=== PATIENT | female | born 1950 | race Caucasian/White ===

== ENCOUNTER 2017-07-29 08:18 | Outpatient (CLI) | payer MEDICARE, OTHER ==
--- NOTE | 2017-08-02 17:45 | Mammography Report ---
DIGITAL SCREENING MAMMOGRAM: 07/29/2017 CLINICAL INDICATION: A 67-year-old with history of benign excisional biopsy for screening. COMPARISON: 05/2014, 05/2012, 04/2010, 12/2007. TECHNIQUE: Routine CC and MLO projections were obtained of the breasts. FINDINGS: The breasts again demonstrate scattered fibroglandular densities bilaterally. Punctate, typically benign calcifications are present. No suspicious masses, clustered microcalcifications, or regions of architectural distortion are identified. IMPRESSION: BENIGN FINDINGS. RECOMMENDATION: Routine annual screening unless otherwise clinically indicated. BI-RADS category 2 benign findings. STANDARD QUALIFYING STATEMENTS 1. This examination was reviewed with the aid of Computed-Aided Detection (CAD). 2. A negative or benign imaging report should not delay biopsy if clinically suspicious findings are present. Consider surgical consultation if warranted. More than 5% of cancers are not identified by imaging. 3. Dense breasts may obscure an underlying neoplasm. TD: 08/02/2017 15:31
== END 2017-07-29 08:19 | disposition home or self-care (01) ==
LOC: DI.S 08:18
PROVIDERS: ATTEND Physician Assistant
DX: Z12.31 Encounter for screening mammogram for malignant neoplasm of breast (principal)
CPT/HCPCS: 77067

== ENCOUNTER 2017-12-05 13:00 | Outpatient (CLI) | payer MEDICARE, OTHER | END 2017-12-05 13:01 | disposition home or self-care (01) | LOC: SC 13:00 | PROVIDERS: ATTEND Internal Medicine Pulmonary Disease | DX: G47.33 Obstructive sleep apnea (adult) (pediatric) (principal) | CPT/HCPCS: 99203; G0463; 99212 ==

== ENCOUNTER 2018-01-14 19:38 | Outpatient (CLI) | payer MEDICARE, OTHER | END 2018-01-14 19:39 | disposition home or self-care (01) | LOC: SC 19:38 | PROVIDERS: ATTEND Internal Medicine Pulmonary Disease | DX: G47.33 Obstructive sleep apnea (adult) (pediatric) (principal); G47.61 Periodic limb movement disorder | CPT/HCPCS: 95810 ==

== ENCOUNTER 2018-01-31 10:19 | Outpatient (CLI) | payer MEDICARE, OTHER | END 2018-01-31 10:20 | disposition home or self-care (01) | LOC: SC 10:19 | PROVIDERS: ATTEND Internal Medicine Pulmonary Disease | DX: G47.33 Obstructive sleep apnea (adult) (pediatric) (principal) | CPT/HCPCS: 99213; G0463; 99212 ==

== ENCOUNTER 2018-07-18 10:09 | Outpatient (CLI) | payer MEDICARE, OTHER | END 2018-07-18 10:10 | disposition home or self-care (01) | LOC: SC 10:09 | PROVIDERS: ATTEND Internal Medicine Pulmonary Disease | DX: G47.33 Obstructive sleep apnea (adult) (pediatric) (principal) | CPT/HCPCS: 99213; G0463; 99212 ==

== ENCOUNTER 2019-09-03 10:23 | Outpatient (CLI) | payer MEDICARE, OTHER ==
--- NOTE | 2019-09-03 11:00 | SLEEP CARE CONSULTATION ---
Information from patient questionnaire entered by Jasmina Ren. I have reviewed and concur with the information entered by Jasmina Ren. This document represents the service I personally performed and the decisions made by me, Ethan Hernandez MD, [facility]. History of Present Illness Service Date and Time: 09/03/2019 1023 Previous diagnosis: Mild, Obstructive Sleep Apnea-Hypopnea Syndrome AHI: 5.7 (in 2018) Reason for follow up: annual (last seen 2019) Equipment type: CPAP Equipment obtained from: [employer] Prior sleep studies: Yes Year and Where: 2018 - [facility] Type of Sleep Study: Polysomnography HPI additional information: The patient is doing very well on CPAP therapy at low pressure. She has perfect compliance using a ResMed N30i. She has switched supplier to [employer]. No snore on CPAP. She continues to benefit from the treatment. CPAP Compliance Data - Data Reviewed with Patient Average duration of nightly device use: 7.5 Compliance rate %: 84.4 (180 days) Current pressure setting (cmH2O): 4-8 Humidity settin Heated hose settin Average residual AHI: 3.8 Average large leak: 29 sec Subjective Initial [place] Sleepiness Scale score: 13 (in 2018) Current [place] Sleepiness Scale score: 3 Allergies and Home Medications Drug allergies reviewed: Yes Home medication list reviewed: Yes Review of Systems Review of systems same as previous: Yes Physical Exam Vital signs obtained and entered by: deferred due to COVID-19. Height: 5 ft 7 in Impression and Plan IMPRESSION: 1. Obstructive Sleep Apnea-Hypopnea Syndrome, mild, with the patient continuing to do well on nasal CPAP therapy. She has excellent compliance and significant clinical improvement. The current pressure appears effective and comfortable. Overall, she is very satisfied with treatment and plans to continue with it long-term. No adjustment is necessary today. PLAN: 1. Continue with CPAP set at 4 - 8 cm H2O. 2. Try to lose weight 3. Return in one year for follow up or earlier if there is any problem with the treatment. Visit Type: In Office Time Spent with Patient (minutes): 15 Provider Statement: I spent 100% of the Face to Face Visit with the patient with greater than 50% spent counseling the patient and coordination of care.
== END 2019-09-03 10:24 | disposition home or self-care (01) ==
LOC: SC 10:23
PROVIDERS: ATTEND Internal Medicine Pulmonary Disease
DX: G47.33 Obstructive sleep apnea (adult) (pediatric) (principal)
CPT/HCPCS: 99213; G0463; 99212

== ENCOUNTER 2019-09-18 09:29 | Outpatient (CLI) | payer MEDICARE, OTHER ==
[2019-09-18 15:01] LABS: HCG UR QUAL NEGATIVE
== END 2019-09-18 09:30 | disposition home or self-care (01) ==
LOC: LAB.S 09:29
PROVIDERS: ATTEND Ophthalmology
DX: H25.812 Combined forms of age-related cataract, left eye (principal); Z11.59 Encounter for screening for other viral diseases
CPT/HCPCS: 81025; U0004; 81599

== ENCOUNTER 2019-09-20 07:37 | Day surgery (SDC) | payer MEDICARE, OTHER ==
[~2019-09-20 07:37] MED LIST: BRIMONIDINE 0.2% OPHTH DROPS 5 ML ONE; BSS/LIDOCAINE/EPINEPHRINE 1 ML SYRINGE ONE; CYCLOPENTOLATE 1% OPHTH DROPS 2 ML ONE; EPINEPHrine 1 MG/ML AMP ONE; KETOROLAC 0.45% OPHTH DROPS ONE; PHENYLEPHRINE 2.5% OPHTH 2 ML DROPS ONE; PROPARACAINE 0.5% OPHTH DROPS 15 ML ONE; TRIAMCIN/MOXIFLOX OPHTHALMIC 0.6 ML VIAL IO ONE; VANCOMYCIN OPHTHALMI 8MG/0.8ML 8 MG/0.8 ML SYRINGE IO ONE; timoloL maleate 0.5% OPHTH DROPS (10ML) ONE
[2019-09-20] MEDS ORDERED: LACTATED RINGERS 500 ML IV ONE (07:44)
--- NOTE | 2019-09-20 08:35 | ANESTHESIA ---
Pre-Anesthesia VS, & Labs - Diagnosis Right eye cataract - Procedure Right eye ECCE PHACO with IOL Vital Signs: Temp Pulse Resp BP Pulse Ox 36.7 C 67 16 142/83 H 97 09/20/19 07:55 09/20/19 07:55 09/20/19 07:55 09/20/19 07:55 09/20/19 07:55 Height 5 ft 7 in Weight (kg) 89 kg - NPO >8 hours - Is Patient ?: No - Lab Results Lab results reviewed: Yes Home Medications and Allergies Home Medications: Ambulatory Orders Fluoxetine HCl [Prozac] 40 mg PO DAILY 09/20/19 hydroCHLOROthiazide [Hydrochlorothiazide] 25 mg PO DAILY 09/20/19 Fluoxetine HCl [Prozac] 40 mg PO DAILY 09/20/19 hydroCHLOROthiazide [Hydrochlorothiazide] 25 mg PO DAILY 09/20/19 Allergies/Adverse Reactions: Allergies Allergy/AdvReac Type Severity Reaction Status Date / Time No Known Drug Allergies Allergy Verified 06/25/13 14:03 Anes History & Medical History - Anesthetic History Anesthesia Complications: reports: No previous complications Family history of Anesthesia Complications: Denies Family history of Malignant Hyperthermia: Denies - Medical History Cardiovascular: reports: None, Hypertension Pulmonary: reports: Sleep apnea, CPAP use, Other Gastrointestinal: reports: None Urinary: reports: Frequency Musculoskeletal: reports: Osteoarthritis Skin: reports: None - Surgical History General: Colonoscopy Gynecologic: Hysterectomy Orthopedic: ACL reconstruction, Arthroscopic surgery Exam General: Alert, Oriented x3, Cooperative Dental: WNL Mouth Openin Fingerbreadth Neck Mobility: Reduced Mallampati classification: II Thyromental Distance: 4-6 cm Respiratory: Lungs clear Cardiovascular: Regular rate Plan Anesthesia Type: MAC Consent for Procedure(s) Verified and Reviewed: Yes Code Status: Attempt Resuscitation ASA classification: 3-Severe systemic disease Is this case an emergency?: No
[2019-09-20] MEDS ORDERED: MIDAZOLAM 2 MG/2 ML VIAL IVP ONE (08:42)
[2019-09-20] MEDS ORDERED: BRIMONIDINE 0.2% OPHTH DROPS 5 ML OPTH ONE (08:49)
[2019-09-20] MEDS ORDERED: EPINEPHrine 1 MG/ML AMP IR ONE (08:50)
[2019-09-20] MEDS ORDERED: CHONDR SULF/HYALURONATE SYRINGE IO ONE (08:50)
[2019-09-20] MEDS ORDERED: PROPARACAINE 0.5% OPHTH DROPS 15 ML EACHEYE ONE (08:51)
[2019-09-20] MEDS ORDERED: BSS/LIDOCAINE/EPINEPHRINE 1 ML SYRINGE IO ONE (08:51)
[2019-09-20] MEDS ORDERED: VANCOMYCIN OPHTHALMI 8MG/0.8ML 8 MG/0.8 ML SYRINGE IO ONE (08:52)
[2019-09-20 09:22] VITALS: BP 130/66
--- NOTE | 2019-09-20 09:49 | OPERATIVE REPORT ---
DATE OF SERVICE: 09/20/2019 Physician: Kiel Kate MD PREOPERATIVE DIAGNOSIS: Visually significant cataract, left eye. This was her first cataract surger y. POSTOPERATIVE DIAGNOSIS: Visually significant cataract, left eye. This was her first cataract surge ry. PROCEDURE: Phacoemulsification with posterior chamber intraocular lens implant, left eye. SURGEON: Kiel Kate MD ANESTHESIA: Monitored anesthesia care. COMPLICATIONS: None. OPERATIVE INDICATIONS: This is a 69-year-old woman with progressive vision loss in the left eye due to 2+ nuclear sclerotic and 2+ cortical cataract. Best corrected visual acuity was 20/25, with glare to 20/40 in the left eye. Indications for surgery were overall decrease in vision, difficulty readi ng, difficulty seeing street signs, difficulty driving in low light or at night, difficulty driving a t night because of headlights from other vehicles, and difficulty with glare or bright lights in any situation. She was consented at length concerning risks and benefits of cataract surgery, after whic h she expressed a desire to proceed with surgery. OPERATIVE PROCEDURE: Patient was taken to OR #3 and placed under monitored anesthesia care. A surgi eileen timeout was conducted confirming correct patient, correct procedure, and correct surgical site. She was given topical anesthesia then prepped and draped in the usual sterile fashion. The eye was e ntered at the 6 and 3 o'clock positions. Intracameral Shugarcaine was injected into the anterior carolina mber, followed by Viscoat. A continuous-tear curvilinear capsulorrhexis was performed. The nucleus was hydrodissected and phacoemulsified. The cortex was evacuated using automated infusion and aspira tion. Provisc was injected in the capsular bag, and a 22.5 diopter intraocular lens was inserted int o the bag. Infusion and aspiration was used to evacuate the viscoelastic materials. The eye was inf lated to physiologic pressure using balanced salt solution and found to be watertight. Approximately 0.25 mL of a mixture of triamcinolone and moxifloxacin was injected trans sclerally into the vitreou s in the inferotemporal quadrant. An additional 0.55 mL of a mixture of triamcinolone, moxifloxacin and vancomycin was injected subconjunctivally in the superior quadrant for infection and inflammation prophylaxis. Wound integrity was checked with Weck-Drea sponges. Patient was taken from the Operati ng Room in good condition and given postoperative instructions. TD: 09/20/2019 09:13
== END 2019-09-20 07:38 | disposition home or self-care (01) ==
LOC: SDS 07:37
PROVIDERS: ATTEND Ophthalmology
DX: H25.812 Combined forms of age-related cataract, left eye (principal); G47.33 Obstructive sleep apnea (adult) (pediatric); I10 Essential (primary) hypertension; Z87.891 Personal history of nicotine dependence
CPT/HCPCS: 66984; A9270; J3490; V2632

== ENCOUNTER 2019-10-08 17:35 | Outpatient (CLI) | payer MEDICARE, OTHER | END 2019-10-08 17:36 | disposition home or self-care (01) | LOC: COV 17:35 | PROVIDERS: ATTEND Family Medicine | DX: Z11.59 Encounter for screening for other viral diseases (principal) ==

== ENCOUNTER 2020-08-18 11:01 | Outpatient (CLI) | payer MEDICARE, OTHER ==
--- NOTE | 2020-08-18 12:08 | SLEEP CARE CONSULTATION ---
Information from patient questionnaire entered by Jasmina Ren. I have reviewed and concur with the information entered by Jasmina Ren. This document represents the service I personally performed and the decisions made by me, Ethan Hernandez MD, [facility] [place]. History of Present Illness Service Date and Time: 08/18/2020 1101 Previous diagnosis: Mild, Obstructive Sleep Apnea-Hypopnea Syndrome AHI: 5.7 (in 2018) Reason for follow up: annual (last seen 08/2019) Equipment type: CPAP Equipment obtained from: [employer] Mask style: Nasal Mask brand: Resmed (N30i) Prior sleep studies: Yes Year and Where: 2018 [facility] HPI additional information: HPI: Ms. Givens returned today for follow up of nasal CPAP therapy. She was diagnosed to have mild obstructive sleep apnea-hypopnea syndrome. The patient went to [facility] for the equipment and was fitted with a Respironics DreamWear nasal cushion mask. She now uses a ResMed N30i mask. Her durable medical supplier is [employer]. She continues to use the device nightly and all through the night. The compliance report shows usage in 180 nights out of the past 180 nights, averaging 8.7 hours a night. She complained of no particular problem with the device such as soreness on the face, dry nose, epistaxis, nasal congestion or headache. She thinks that the pressure of 4 - 8 cmH2O is comfortable. On the CPAP therapy she notices improvement in her sleep quality, and that she wakes up feeling fresher in the morning and more awake/alert during the day. The [place] Sleepiness Scale score 8 (unchanged). The average residual AHI is 2.9; and average time in large leak per day is 5 seconds. The 90th percentile pressure is 7.3 cmH2O. CPAP Compliance Data - Data Reviewed with Patient Average duration of nightly device use: 8 hr 43 min Compliance rate %: 100 (180 days) Current pressure setting (cmH2O): 4-8 Humidity settin Heated hose settin Average residual AHI: 2.9 Average large leak: 5 sec Subjective Initial [place] Sleepiness Scale score: 13 (in 2018) Current [place] Sleepiness Scale score: 8 Allergies and Home Medications Drug allergies reviewed: Yes Home medication list reviewed: Yes Review of Systems Review of systems same as previous: Yes Physical Exam Height: 5 ft 7 in Weight: 170 lb Weight change since last visit: -14 lbs Body Mass Index: 26.6 BMI Classification: Overweight Impression and Plan IMPRESSION: 1. Obstructive Sleep Apnea-Hypopnea Syndrome, mild, with the patient doing well on nasal CPAP therapy. She has excellent compliance and significant clinical improvement. The current pressure appears effective and comfortable. Overall, she is very satisfied with treatment and plans to continue with it long-term. No adjustment is necessary today. PLAN: 1. Continue with nasal CPAP therapy at 4 - 8 cmH2O. 2. Try to lose more weight 3. Try ResMed P30i nasal pillows 4. Return in one year for follow up or earlier if there is any problem with the treatment. Visit Type: In Office Time Spent with Patient (minutes): 15 Provider Statement: I spent 100% of the Face to Face Visit with the patient with greater than 50% spent counseling the patient and coordination of care.
== END 2020-08-18 11:02 | disposition home or self-care (01) ==
LOC: SC 11:01
PROVIDERS: ATTEND Internal Medicine Pulmonary Disease
DX: G47.33 Obstructive sleep apnea (adult) (pediatric) (principal); E66.3 Overweight; Z68.26 Body mass index [BMI] 26.0-26.9, adult
CPT/HCPCS: 99212; G0463

== ENCOUNTER 2021-02-15 12:16 | Outpatient (CLI) | payer MEDICARE, OTHER ==
--- NOTE | 2021-02-16 12:57 | Mammography Report ---
BILATERAL DIGITAL SCREENING MAMMOGRAM 3D/2D: 02/15/2021 CLINICAL: Routine screening. Comparison is made to exams dated: 07/29/2017 mammogram, 05/31/2014 mammogram, 05/30/2012 mammogram, an d 05/01/2010 mammogram - [facility]. The tissue of both breasts is predominantly fa tty. No significant masses, calcifications, or other findings are seen in either breast. There has been no significant interval change. IMPRESSION: NEGATIVE There is no mammographic evidence of malignancy. A 1 year screening mammogram is recommended. This exam was interpreted at Station ID: [id number]. NOTE: For mammograms, a report in lay terms will be sent to the patient. Approximately 15% of breast malignancies will not be visualized mammographically. In the management of a palpable breast mass, a negative mammogram must not discourage biopsy of a clinically suspicious lesion. Electronically Signed By: Toño Jason M.D., jr/benedict:02/16/2021 09:08:36 ACR BI-RADS Category 1: Negative 3341F PARENCHYMAL PATTERN: (F) - The breast(s) demonstrate(s) diffuse fatty replacement. BI-RADS CATEGORY: (1) - 1 RECOMMENDATION: (ANNUAL) - Recommend routine annual screening mammography. [id number] 1 year screening LATERALITY: (B)
== END 2021-02-15 12:17 | disposition home or self-care (01) ==
LOC: DI.S 12:16
PROVIDERS: ATTEND Nurse Practitioner Family
DX: Z12.31 Encounter for screening mammogram for malignant neoplasm of breast (principal)

== ENCOUNTER 2021-07-27 10:50 | Outpatient (CLI) | payer MEDICARE, OTHER ==
[2021-07-27 11:35] VITALS: BP 123/70
--- NOTE | 2021-07-27 11:35 | SLEEP CARE CONSULTATION ---
Information from patient questionnaire entered by Ti Toney MA. I have reviewed and concur with the information entered by Ti Toney MA. This document represents the service I personally performed and the decisions made by me, Ethan Hernandez MD, [facility]. History of Present Illness Service Date and Time: 07/27/2021 1050 Previous diagnosis: Mild, Obstructive Sleep Apnea-Hypopnea Syndrome AHI: 5.7 (in 2018) Reason for follow up: other (11 MONTH F/U , EMILY, ) Equipment type: CPAP Equipment obtained from: [employer] Mask style: Nasal Prior sleep studies: Yes Year and Where: 2017 - [facility] HPI additional information: Ms. Givens returned today for her annual follow up of nasal CPAP therapy. She was diagnosed to have mild obstructive sleep apnea-hypopnea syndrome. The patient went to [facility] for the equipment but is getting supplies from [facility]. She wears a ResMed N30i mask (she did not like the P30 nasal pillows). She continues to use the device nightly and all through the night. The compliance report shows usage in 334 nights out of the past 365 nights, averaging 8.2 hours a night. The > 4 hour compliance rate for the past 30 days is 90%. She complained of no particular problem with the device such as soreness on the face, dry nose, epistaxis, nasal congestion or headache. She thinks that the pressure of 4 - 8 cmH2O is comfortable. On the CPAP therapy she notices improvement in her sleep quality, and that she wakes up feeling fresher in the morning and more awake/alert during the day. The [place] Sleepiness Scale score 5 (was 8 last year). The average residual AHI is 2.2; and average time in large leak per day is 16 seconds. The 90th percentile pressure is 7.4 cmH2O. She has registered her [employer] DreamStation autoCPAP with the solar[employer]renewable energy sales and is waiting for the replacement. Sleep Study - Results Prior sleep studies: Yes Year and Where: 2017 - [facility] CPAP Compliance Data - Data Reviewed with Patient Average duration of nightly device use: 8 HOURS 8 MINUTES Compliance rate %: 82.2 Current pressure setting (cmH2O): 4-8 Humidity settin Heated hose settin Average residual AHI: 2.1 Average large leak: 20 SECONDS Subjective Missed days of use due to: reports: travel Initial [place] Sleepiness Scale score: 13 (in 2018) Current [place] Sleepiness Scale score: 6 (07/2021) Allergies and Home Medications Known drug allergies: No Drug allergies reviewed: Yes Home medication list reviewed: Yes Allergy and home medication list: Allergies No Known Drug Allergies Allergy (Verified 06/25/13 14:03) chart states allergy to lisinopril patient denies Review of Systems Review of systems same as previous: Yes Physical Exam Vital signs obtained and entered by: Cesia TONEY CMA AAAMBROSE Blood Pressure: 123/70 (PULSE 69, RESP 18, LEFT) Cuff size: wrist Heart Rate: 69 O2 Saturation: 97 (ROCIO MASK) Height: 5 ft 7 in Weight: 180 lb Body Mass Index: 28.1 BMI Classification: Overweight Impression and Plan IMPRESSION: 1. Obstructive Sleep Apnea-Hypopnea Syndrome, mild, with the patient doing well on nasal CPAP therapy. She has excellent compliance and significant clinical improvement. The current pressure appears effective and comfortable. Overall, she is very satisfied with treatment and plans to continue with it long-term. No adjustment is necessary today. PLAN: 1. Continue with nasal CPAP therapy at 4 - 8 cmH2O. 2. Try to lose more weight 3. Try ResMed P30i nasal pillows 4. Return in one year for follow up or earlier if there is any problem with the treatment. She should be eligible for a new machine then. Follow up with Sleep Care in: 1-2 months Visit Type: In Office Time Spent with Patient (minutes): 15 Provider Statement: I spent 100% of the Face to Face Visit with the patient with greater than 50% spent counseling the patient and coordination of care.
== END 2021-07-27 10:51 | disposition home or self-care (01) ==
LOC: SC 10:50
PROVIDERS: ATTEND Internal Medicine Pulmonary Disease
DX: G47.33 Obstructive sleep apnea (adult) (pediatric) (principal)
CPT/HCPCS: 99212; G0463

== ENCOUNTER 2022-08-02 09:47 | Outpatient (CLI) | payer MEDICARE, OTHER ==
--- NOTE | 2022-08-02 10:19 | SLEEP CARE CONSULTATION ---
Information from patient questionnaire entered by Trina Bo. I have reviewed and concur with the information entered by Trina Bo. This document represents the service I personally performed and the decisions made by me, Ethan Hernandez MD, [facility]. History of Present Illness Service Date and Time: 08/02/2022 0947 Previous diagnosis: Mild, Obstructive Sleep Apnea-Hypopnea Syndrome AHI: 5.7 (in 2018) Reason for follow up: annual (LAST SEEN 07/2021) Equipment type: CPAP (LOWE) Equipment obtained from: [employer] Mask style: Nasal Prior sleep studies: Yes Year and Where: 2017 - [facility] HPI additional information: Ms. Givens returned today for her annual follow up of nasal CPAP therapy. She was diagnosed to have mild obstructive sleep apnea-hypopnea syndrome. The patient went to [facility] for the equipment but is getting supplies from [facility]. She wears a ResMed N30i mask (she did not like the P30 nasal pillows). She continues to use the [employer] DreamStation 2 autoCPAP nightly and all through the night. The compliance report shows usage in 177 nights out of the past 180 nights, averaging 9.8 hours a night. The > 4 hour compliance rate for the past 30 days is 98%. She complained of no particular problem with the device such as soreness on the face, dry nose, epistaxis, nasal congestion or headache. She thinks that the pressure of 4 - 8 cmH2O is comfortable. On the CPAP therapy she notices improvement in her sleep quality, and that she wakes up feeling fresher in the morning and more awake/alert during the day. The [place] Sleepiness Scale score 7 (was 5 last year). The average residual AHI is 3; and average time in large leak per day is 0 seconds. The 90th percentile pressure is 8 cmH2O. Sleep Study - Results Prior sleep studies: Yes Year and Where: 2017 - [facility] CPAP Compliance Data - Data Reviewed with Patient Average duration of nightly device use: 9HRS 47SEC Compliance rate %: 98.3 (01/30/22-07/28/22) Current pressure setting (cmH2O): 4-8 Average residual AHI: 3 Subjective Initial [place] Sleepiness Scale score: 13 (in 2018) Current [place] Sleepiness Scale score: 7 (08/02/22) Allergies and Home Medications Drug allergies reviewed: Yes Home medication list reviewed: Yes Allergy and home medication list: Allergies No Known Drug Allergies Allergy (Verified 07/30/22 09:15) chart states allergy to lisinopril patient denies Review of Systems Review of systems same as previous: Yes Physical Exam Vital signs obtained and entered by: TRINA Bustillo MA Blood Pressure: 122/68 (LEFT ARM) Cuff size: regular Heart Rate: 61 O2 Saturation: 98 Height: 5 ft 7 in Weight: 200 lb Body Mass Index: 31.3 BMI Classification: Obese Impression and Plan IMPRESSION: 1. Obstructive Sleep Apnea-Hypopnea Syndrome, mild, with the patient doing well on nasal CPAP therapy. She has excellent compliance and significant clinical improvement. The current pressure appears effective and comfortable. Overall, she is very satisfied with the treatment and plans to continue with it long-term. No adjustment is necessary today. PLAN: 1. Continue with nasal CPAP therapy at 4 - 8 cmH2O. 2. Try to lose more weight. 3. Try ResMed P30i nasal pillows 4. Return in six months when she is eligible for a new machine. Follow up with Sleep Care in: 6 months Visit Type: In Office Time Spent with Patient (minutes): 15 Provider Statement: I spent 100% of the Face to Face Visit with the patient with greater than 50% spent counseling the patient and coordination of care.
[2022-08-02 10:21] VITALS: BP 122/68
== END 2022-08-02 09:48 | disposition home or self-care (01) ==
LOC: SC 09:47
PROVIDERS: ATTEND Internal Medicine Pulmonary Disease
DX: G47.33 Obstructive sleep apnea (adult) (pediatric) (principal); E66.9 Obesity, unspecified; Z68.31 Body mass index [BMI] 31.0-31.9, adult
CPT/HCPCS: 99212; G0463

== ENCOUNTER 2023-01-10 06:59 | Outpatient (CLI) | payer MEDICARE, OTHER ==
--- NOTE | 2023-01-10 10:23 | MRI Report ---
PROCEDURE: LUMBAR SPINE WO INDICATIONS: LOW BACK PAIN TECHNIQUE: Noncontrast sagittal T1 spin echo and T2 fast echo, sagittal STIR, axial T1 and T2 fast spin echo thr ough the lumbar spine. In cases with scoliosis, additional coronal T2 fast spin echo may be performe d. COMPARISON: None. FINDINGS: Image quality: Excellent. Alignment and Curvature: Straightening of normal lumbar lordosis. Bone Marrow: Multilevel degenerative endplate changes, worse at L2-L3 and L3-L4. Marrow is of normal overall signal. No acute vertebral body compression fractures. Spinal Cord: Conus medullaris terminates at the L1 level. Visualized cord demonstrates normal signa l and size. Paraspinous Soft Tissues: No paravertebral masses. Bilateral peripelvic renal cysts. T12-L1: Disc desiccation and mild height loss. Minimal posterior disc bulge. No central canal or donald roforaminal stenosis. L1-L2: Disc desiccation and height loss. Posterior disc bulge. Facet arthropathy. No significant c entral canal stenosis. Mild left neuroforaminal stenosis. No right foraminal stenosis. L2-L3: Disc desiccation and height loss. Facet arthropathy and thickening of ligamentum flavum. No central canal stenosis. Moderate left and mild right neuroforaminal stenosis. L3-L4: Disc desiccation and height loss. Mild posterior disc bulge. Facet arthropathy. No central c anal stenosis. Moderate bilateral neuroforaminal stenosis. L4-L5: Disc desiccation and height loss. Facet arthropathy and thickening of the ligamentum flavum. No central canal stenosis. Severe right and mild left neuroforaminal stenosis. L5-S1: Disc desiccation. Facet arthropathy. No central canal stenosis. Mild bilateral neuroforamina l stenosis. IMPRESSION: 1.Multilevel degenerative changes of the lumbar spine as described above. 2.No significant central canal stenosis. 3.Severe right neuroforaminal stenosis at L4-L5. Additional levels of mild and moderate neuroforamina l stenosis as described above. Reviewed by: Jd Forman MD on 01/10/2023 10:22 AM PDT Approved by: Jd Forman MD on 01/10/2023 10:22 AM PDT Station ID: [id number]
== END 2023-01-10 07:00 | disposition home or self-care (01) ==
LOC: DI 06:59
PROVIDERS: ATTEND Physical Medicine & Rehabilitation
DX: M47.816 Spondylosis without myelopathy or radiculopathy, lumbar region (principal); M51.36 Other intervertebral disc degeneration, lumbar region; M48.061 Spinal stenosis, lumbar region without neurogenic claudication; M47.817 Spondylosis without myelopathy or radiculopathy, lumbosacral region; M51.37 Other intervertebral disc degeneration, lumbosacral region; M48.07 Spinal stenosis, lumbosacral region

== ENCOUNTER 2023-01-17 09:38 | Outpatient (CLI) | payer MEDICARE, OTHER ==
--- NOTE | 2023-01-17 16:34 | MRI Report ---
PROCEDURE: HIP WO - RT INDICATIONS: CHRONIC HIP PAIN TECHNIQUE: Noncontrast coronal T1 spin echo and STIR through the bony pelvis. Coronal and axial T2 fast spin ec ho with fat saturation, sagittal T1 spin echo, and oblique axial T2 fast spin echo with fat saturatio n through the hip. COMPARISON: None. FINDINGS: Image quality: Excellent. Bones and joints: Mild periarticular osteophyte formation at the bilateral hip joints. Bone marrow o f the pelvic ring and proximal femurs show normal signal throughout. No intraosseous lesions or frac tures. No avascular necrosis of the femoral heads. The visualized lower lumbar spine appears normal ly aligned. Reactive signal within the lower lumbar spine. Tendons: Low-grade partial-thickness tearing of the right gluteus medius and minimus tendons at the f emoral insertion sites with surrounding T2 signal elevation, indicating tendinitis. The iliopsoas ten don appears intact, without adjacent bursal fluid collections. The origin of the hamstring tendon is intact at the ischial tuberosity. Labrum and cartilage: Linear high T2 signal intensity traverses the right hip labrum. Cartilage surfa ce of the femoral head appears of normal thickness. The alpha angle of the femur is within normal li mits at less than 55 degrees. Soft tissues: Visualized muscles demonstrate normal bulk and internal signal. The proximal sciatic neurovascular bundle appears normal adjacent to the hamstring tendons. No free pelvic fluid. Bladde r wall thickness is normal. Genitourinary structures and bowel loops appear normal where visualized. IMPRESSION: 1. Low-grade tendinitis and partial thickness tearing of the right gluteus medius and minimus tendons . 2. Right hip osteoarthritis associated with right hip labral tearing. 3. Degenerative disc disease. Reviewed by: Nino Smith MD on 01/17/2023 4:32 PM PST Approved by: Nino Smith MD on 01/17/2023 4:32 PM PST Station ID: [id number]
== END 2023-01-17 09:39 | disposition home or self-care (01) ==
LOC: DI 09:38
PROVIDERS: ATTEND Physical Medicine & Rehabilitation
DX: S76.011A Strain of muscle, fascia and tendon of right hip, initial encounter (principal); M16.11 Unilateral primary osteoarthritis, right hip; M51.36 Other intervertebral disc degeneration, lumbar region

== ENCOUNTER 2023-02-23 08:48 | Outpatient (CLI) | payer MEDICARE, OTHER ==
--- NOTE | 2023-02-23 16:57 | DEXA Report ---
PROCEDURE: Dexa Spine and/or Hip INDICATIONS: POST MENOPAUSAL TECHNIQUE: Dual energy x-ray absorptiometry (DXA) was performed on a Major Aide System. Regions measur ed are the AP Spine, femoral neck, and if needed forearm. COMPARISON: None. FINDINGS: Lumbar Spine: Bone Mineral Density 1.200 g/cm/cm, T score 0.2. Normal Left Femoral Neck: Bone Mineral Density 0.812 g/cm/cm, T score -1.6. Osteopenia. Left Hip: Bone Mineral Density 0.726 g/cm/cm, T score -2.2. Osteopenia (T score greater or equal to -1.0: NORMAL) (T score from -1.1 to -2.4: OSTEOPENIA) (T score less than or equal to -2.5 to: OSTEOPOROSIS) Impression: By WHO criteria, this patient has low bone density (osteopenia). Patients with diagnosis of osteoporosis or osteopenia should have regular bone mineral density assess ment. For those eligible for Medicare, routine testing is allowed once every 2 years. Testing frequ ency can be increased for patients who have rapidly progressing disease or for those who are receivin g medical therapy to restore bone mass. Reviewed by: Phani Garcia MD on 02/23/2023 4:55 PM PST Approved by: Phani Garcia MD on 02/23/2023 4:55 PM PST Station ID: [id number]
== END 2023-02-23 08:49 | disposition home or self-care (01) ==
LOC: DI 08:48
PROVIDERS: ATTEND Nurse Practitioner Family
DX: Z78.0 Asymptomatic menopausal state (principal); M85.89 Other specified disorders of bone density and structure, multiple sites

== ENCOUNTER 2023-02-23 08:50 | Outpatient (CLI) | payer MEDICARE, OTHER ==
--- NOTE | 2023-02-24 10:19 | Mammography Report ---
BILATERAL DIGITAL SCREENING MAMMOGRAM 3D/2D: 02/23/2023 CLINICAL: Routine screening. Comparison is made to exams dated: 02/15/2021 mammogram, 07/29/2017 mammogram, and 05/31/2014 mammogram - [facility]. There are scattered areas of fibroglandular density in both breasts (category b / 25%-50% glandular t issue). No significant masses, calcifications, or other findings are seen in either breast. There has been no significant interval change. IMPRESSION: NEGATIVE There is no mammographic evidence of malignancy. A 1 year screening mammogram is recommended. Based on the Tyrer Cuzick model (a risk assessment model) the patients lifetime risk is 1.8% and her 10 year risk is 1.6%. According to the ACR, ACS, and NCCN guidelines, an annual breast MRI exam arabella g with mammogram is recommended if the patients lifetime risk is 20% or greater. This exam was interpreted at Station ID: [id number]. NOTE: For mammograms, a report in lay terms will be sent to the patient. Approximately 15% of breast malignancies will not be visualized mammographically. In the management of a palpable breast mass, a negative mammogram must not discourage biopsy of a clinically suspicious lesion. Electronically Signed By: Jamey [email or web address]/[email or web address]:02/23/2023 23:21:15 letter sent: No_Letter ACR BI-RADS Category 1: Negative 3341F PARENCHYMAL PATTERN: (A) - The breast(s) demonstrate(s) scattered fibroglandular densities. BI-RADS CATEGORY: (1) - 1 Mammogram [id number] 1 year screening LATERALITY: (B)
== END 2023-02-23 08:51 | disposition home or self-care (01) ==
LOC: DI 08:50
PROVIDERS: ATTEND Nurse Practitioner Family
DX: Z12.31 Encounter for screening mammogram for malignant neoplasm of breast (principal); R92.323 Mammographic fibroglandular density, bilateral breasts

== ENCOUNTER 2023-08-01 12:49 | Outpatient (CLI) | payer MEDICARE, OTHER ==
--- NOTE | 2023-08-01 13:03 | SLEEP CARE CONSULTATION ---
Information from patient questionnaire entered by Trina Bo. I have reviewed and concur with the information entered by Trina Bo. This document represents the service I personally performed and the decisions made by me, Ethan Hernandez MD, [facility]. History of Present Illness Service Date and Time: 08/01/2023 1249 Previous diagnosis: Mild, Obstructive Sleep Apnea-Hypopnea Syndrome AHI: 5.7 (in 2018) Reason for follow up: annual (LAST SEEN 07/2022) Equipment type: CPAP (LOWE) Equipment obtained from: [employer] Mask style: Nasal Prior sleep studies: Yes Year and Where: 2017 - [facility] Sleep HPI additional information: Ms. Givens returned today for her annual follow up of nasal CPAP therapy. She was diagnosed with mild obstructive sleep apnea-hypopnea syndrome. The patient went to [facility] for the equipment but is getting supplies from [facility]. She wears a ResMed N30i mask (she did not like the P30 nasal pillows). She continues to use the [employer] Resp[employer]ics DreamStation 2 autoCPAP nightly and all through the night. The compliance report shows usage in 361 nights out of the past 365 nights, averaging 9.6 hours a night. The > 4 hour compliance rate for the past 30 days is 98%. She complained of no particular problem with the device such as soreness on the face, dry nose, epistaxis, nasal congestion or headache. She thinks that the pressure of 4 - 8 cmH2O is comfortable. On the CPAP therapy she notices improvement in her sleep quality, and that she wakes up feeling fresher in the morning and more awake/alert during the day. The [place] Sleepiness Scale score 11 (was 7 last year). The average residual AHI is 2.8; and average time in large leak per day is 1 second. The 90th percentile pressure is 8 cmH2O. Sleep Study - Results Prior sleep studies: Yes Year and Where: 2017 - [facility] Sleep CPAP Compliance Data - Data Reviewed with Patient Average duration of nightly device use: 8HRS 39MINS 33SECS Compliance rate %: 98.4 (07/27/22-07/26/23) Current pressure setting (cmH2O): 4-8 Average residual AHI: 2.8 Subjective Initial [place] Sleepiness Scale score: 13 (in 2018) Current [place] Sleepiness Scale score: 11 (08/01/23) Allergies and Home Medications Drug allergies reviewed: Yes Home medication list reviewed: Yes Allergy and home medication list: Allergies No Known Drug Allergies Allergy (Verified 07/28/23 10:00) chart states allergy to lisinopril patient denies Review of Systems Review of systems same as previous: No (SPINAL SURGERY 06/2023) Physical Exam Vital signs obtained and entered by: TRINA Bustillo MA Blood Pressure: 154/91 (RIGHT ARM) Cuff size: long Heart Rate: 63 O2 Saturation: 99 Height: 5 ft 7 in Weight: 185 lb 12.8 oz Body Mass Index: 29.0 BMI Classification: Overweight Impression and Plan IMPRESSION: 1. Obstructive Sleep Apnea-Hypopnea Syndrome, mild, with the patient doing well on nasal CPAP therapy. She has excellent compliance and significant clinical improvement. The current pressure appears effective and comfortable. Overall, she is very satisfied with the treatment and plans to continue with it long-term. No adjustment is necessary today. She is eligible for a new machine this year but she does not want a new one yet. PLAN: 1. Continue with nasal CPAP therapy at 4 - 8 cmH2O. 2. Try to lose more weight. 3. Try ResMed P30i nasal pillows 4. Return in six months when she is eligible for a new machine. Continue with device pressure at (cmH2O): 4-8 Follow up with Sleep Care in: 1 year Visit Type: In Office Time Spent with Patient (minutes): 15 Provider Statement: I spent 100% of the Face to Face Visit with the patient with greater than 50% spent counseling the patient and coordination of care.
[2023-08-01 13:07] VITALS: BP 154/91; O2SAT 99
== END 2023-08-01 12:50 | disposition home or self-care (01) ==
LOC: SC 12:49
PROVIDERS: ATTEND Internal Medicine Pulmonary Disease
DX: G47.33 Obstructive sleep apnea (adult) (pediatric) (principal); E66.3 Overweight; Z68.29 Body mass index [BMI] 29.0-29.9, adult
CPT/HCPCS: 99212; G0463